=== PATIENT | male | born 1935 | race Caucasian/White ===

== ENCOUNTER 2019-01-01 13:18 | Emergency (ER) | payer MEDICARE, OTHER ==
[~2019-01-01] VITALS: Ht 177.8 cm; Wt 104.3 kg
[2019-01-01 14:09] LABS: Basophils # (auto) 0.1 uL; Eosinophils # (auto) 0.3 uL; Hematocrit 37.1 % (41.0-53.0); Lymphocytes # (auto) 1.9 uL; Monocytes # (auto) 0.5 uL
[2019-01-01 14:11] LABS: Basophils % (auto) 1.2 % (0.0-2.0); Eosinophils % (auto) 4.9 % (0.0-7.0); Hemoglobin 11.8 g/dL (13.5-17.5); Lymphocytes % (auto) 30.9 % (10.0-50.0); Mean Corpuscular Hemoglobin 24.3 pg (28.0-32.0); Mean Corpuscular Hgb Conc. 31.9 g/dL (32.0-36.0); Monocytes % (auto) 7.8 % (0.0-12.0); Neutrophils # (auto) 3.3 uL; Neutrophils % (auto) 55.2 % (37.0-80.0); Platelet Count (auto) 305 10^3/uL (140-450); Red Blood Cells 4.88 10^6/uL (4.5-5.90); Red Cell Distribution Width 18.6 % (11.8-14.3); White Blood Cell 6.1 10^3/uL (4.4-10.8)
[2019-01-01 14:38] LABS: Albumin 3.7 g/dL (3.4-5.0); Anion Gap 8 (5-15); Calcium 9.4 mg/dL (8.5-10.1); Carbon Dioxide 30 mmol/L (21-32); Chloride 103 mmol/L (98-107); Glucose 109 mg/dL (74-106); Potassium 3.8 mmol/L (3.5-5.1); Sodium 141 mmol/L (136-145)
[2019-01-01 14:43] LABS: Alanine Aminotransferase 22 U/L (16-61); Alkaline Phosphatase 99 U/L (45-117); Aspartate Aminotransferase 15 U/L (15-37); BUN/Creatinine Ratio 16.8; Bilirubin, Total 0.5 mg/dL (0.2-1.0); Blood Urea Nitrogen 16 mg/dL (7-18); GFR African American 97 mL/min; GFR Non-African American 80 mL/min; Total Protein 7.2 g/dL (6.4-8.2)
[2019-01-01 15:01] VITALS: BP 124/71
[2019-01-01] MEDS ORDERED: SODIUM CHLORIDE 0.9% 1,000 ML IV ONE (15:19)
[2019-01-01] MEDS ORDERED: SODIUM CHLORIDE 0.9% 500 ML IVB ONE (15:19)
[2019-01-01] MEDS ORDERED: FUROSEMIDE 20 MG/2 ML VIAL IV ONE (15:30)
[2019-01-01] MEDS ORDERED: LORazepam 2MG/ML-1ML VIAL IV ONE (15:30)
[2019-01-01] MEDS ORDERED: MECLIZINE HCL 25 MG TAB PO ONE (15:30)
== END 2019-01-01 17:03 | disposition home or self-care (01) ==
LOC: ER 13:18
DX: H81.12 Benign paroxysmal vertigo, left ear (principal); I10 Essential (primary) hypertension; D50.9 Iron deficiency anemia, unspecified
CPT/HCPCS: 36415; 70450; 71046; 80053; 81002; 83735; 84443; 84484; 85025; 93005; 96374; 99284; J1940; J8597

== ENCOUNTER 2019-03-25 23:51 | Emergency (ER) | payer OTHER ==
[~2019-03-25] VITALS: Ht 177.8 cm; Wt 108.9 kg
[2019-03-26 00:17] VITALS: BP 120/51
== END 2019-03-26 01:08 | disposition left against medical advice (07) ==
LOC: ER 23:53
DX: R21 Rash and other nonspecific skin eruption (principal); Z53.21 Procedure and treatment not carried out due to patient leaving prior to being seen by health care provider

== ENCOUNTER 2023-04-12 14:24 | Inpatient (IN) | payer OTHER ==
[~2023-04-12] VITALS: Ht 185.4 cm; Wt 109.2 kg
[2023-04-12] MEDS ORDERED: PIPERACILLIN-TAZOB 3.375GM 100 ML IV ONE (16:45)
[2023-04-12 17:05] LABS: Basophils # (auto) 0.1 10 ^3/uL (0-0.2); Basophils % (auto) 0.9 % (0.0-2.0); Eosinophils # (auto) 0.5 10 ^3/uL (0-0.8); Eosinophils % (auto) 6.1 % (0.0-7.0); Hematocrit 40.5 % (41.0-53.0); Hemoglobin 13.7 g/dL (13.5-17.5); Lymphocytes # (auto) 2.9 10 ^3/uL (0.4-5.4); Lymphocytes % (auto) 33.1 % (10.0-50.0); Mean Corpuscular Hemoglobin 29.5 pg (28.0-32.0); Mean Corpuscular Hgb Conc. 33.9 g/dL (32.0-36.0); Mean Corpuscular Volume 87.2 fL (80.0-100.0); Monocytes # (auto) 0.7 10 ^3/uL (0-1.3); Monocytes % (auto) 7.7 % (0.0-12.0); Neutrophils # (auto) 4.5 10 ^3/uL (1.6-8.6); Neutrophils % (auto) 52.2 % (37.0-80.0); Nucleated Red Blood Cells % 0.1 %; Red Blood Cells 4.64 10^6/uL (4.5-5.90); Red Cell Distribution Width 15.5 % (11.8-14.3); White Blood Cell 8.7 10^3/uL (4.4-10.8)
[2023-04-12 17:18] LABS: Alanine Aminotransferase 15 U/L (7-40); Albumin 4.2 g/dL (3.2-4.8); Alkaline Phosphatase 99 U/L (46-116); Anion Gap 7 (5-15); Aspartate Aminotransferase 10 U/L (13-40); BUN/Creatinine Ratio 14.3 (10.0-20.0); Blood Urea Nitrogen 14 mg/dL (9-23); Calcium 9.4 mg/dL (8.5-10.1); Carbon Dioxide 26 mmol/L (20-30); Chloride 105 mmol/L (98-107); Glucose 95 mg/dL (74-106); Potassium 3.5 mmol/L (3.5-5.1); Sodium 138 mmol/L (136-145)
[2023-04-12 17:19] LABS: Bilirubin, Total 0.5 mg/dL (0.2-1.0); Total Protein 7.2 g/dL (5.7-8.2)
[2023-04-12 17:44] LABS: Erythrocyte Sedimentation Rate 17 mm/hr (0-20)
[2023-04-12] MEDS ORDERED: HYDROcodone-ACET 5/325MG TAB PO ONE (19:45)
[2023-04-12] MEDS ORDERED: VANCOMYCIN 1GM/250ML 250 ML IV ONE (22:45)
[2023-04-12] MEDS ORDERED: VANCOMYCIN PER PHARMACY 0 MG IV SCH (23:45)
[2023-04-12] MEDS ORDERED: MORPHINE SULFATE INJ 2 MG/ml SYRG IV PRN (23:45)
[2023-04-12] MEDS ORDERED: ACETAMINOPHEN 325 MG TAB PO PRN (23:45)
[2023-04-12] MEDS ORDERED: DOCUSATE SOD 100 MG CAP PO PRN (23:45)
[2023-04-12] MEDS ORDERED: ONDANSETRON HCL 4 MG/2 ML VIAL IV PRN (23:45)
[2023-04-12] MEDS ORDERED: NITROGLYCERIN 0.4 MG SL TAB SL PRN (23:45)
[2023-04-13 00:48] VITALS: PULSE 59; RESP 9; O2SAT 93
[2023-04-13] MEDS: SODIUM CHLORIDE 0.9% 1,000 ML IV SCH ×2 (02:29→14:35)
[2023-04-13 06:35] LABS: Basophils # (auto) 0.1 10 ^3/uL (0-0.2); Basophils % (auto) 0.8 % (0.0-2.0); Eosinophils # (auto) 0.6 10 ^3/uL (0-0.8); Eosinophils % (auto) 7.4 % (0.0-7.0); Hemoglobin 13.3 g/dL (13.5-17.5); Lymphocytes # (auto) 2.3 10 ^3/uL (0.4-5.4); Lymphocytes % (auto) 29.3 % (10.0-50.0); Mean Corpuscular Hemoglobin 29.7 pg (28.0-32.0); Mean Corpuscular Volume 87.2 fL (80.0-100.0); Monocytes # (auto) 0.7 10 ^3/uL (0-1.3); Monocytes % (auto) 8.5 % (0.0-12.0); Neutrophils # (auto) 4.2 10 ^3/uL (1.6-8.6); Red Blood Cells 4.47 10^6/uL (4.5-5.90); Red Cell Distribution Width 15.8 % (11.8-14.3); White Blood Cell 7.8 10^3/uL (4.4-10.8)
[2023-04-13] MEDS: PIPERACILLIN-TAZOB 3.375GM 100 ML IV SCH ×3 (06:43→22:10)
[2023-04-13 06:44] LABS: Anion Gap 7 (5-15); Carbon Dioxide 27 mmol/L (20-30); Chloride 103 mmol/L (98-107); Potassium 3.3 mmol/L (3.5-5.1); Sodium 137 mmol/L (136-145)
[2023-04-13 06:50] LABS: BUN/Creatinine Ratio 10.9 (10.0-20.0); Blood Urea Nitrogen 11 mg/dL (9-23)
[2023-04-13 07:07] LABS: Glucose 115 mg/dL (74-106)
[2023-04-13] MEDS ORDERED: POTASSIUM CHL 20 Meq TABLET PO ONE (07:45)
[2023-04-13] MEDS ORDERED: LOSA100T33 PO (08:40)
[2023-04-13] MEDS ORDERED: AML5T PO (08:40)
[2023-04-13 09:48] LABS: Urine WBC None Seen /hpf (0 - 3)
[2023-04-13 09:58] VITALS: PULSE 82; RESP 20; O2SAT 96
[2023-04-13] MEDS ORDERED: PANTOPRAZOLE 40 MG/10 ML VIAL INJ IV SCH (10:00)
[2023-04-13] MEDS: ENOXAPARIN SOD 40 MG/0.4 ML SYRINGE SC SCH (10:00)
[2023-04-13 10:42] LABS: Urine Bacteria NONE SEEN /hpf (None Seen); Urine Blood Negative /uL (Negative); Urine Clarity Clear (Clear); Urine Color Colorless (Yellow); Urine Protein, UAD Negative (Negative); Urine Specific Gravity 1.018 (1.001-1.035); Urine Urobilinogen Normal (Negative); Urine pH 5.5 (5.0-8.0)
[2023-04-13] MEDS: HCTZ 25 MG TAB PO SCH (12:26)
[2023-04-13] MEDS: LOSARTAN POTASSIUM 50 MG TAB PO SCH (12:26)
[2023-04-13] MEDS: amLODIPine BESYLATE 5 MG TAB PO SCH (12:27)
[2023-04-13] MEDS: HYDROcodone-ACET 5/325MG TAB PO PRN ×2 (15:23→20:31)
[2023-04-13] MEDS: VANCOMYCIN 1GM/250ML 250 ML IV SCH (17:00)
[2023-04-13 19:00] VITALS: PULSE 70; RESP 14; O2SAT 97
[2023-04-14] MEDS: SODIUM CHLORIDE 0.9% 1,000 ML IV SCH ×2 (03:23→15:45)
[2023-04-14] MEDS: HYDROcodone-ACET 5/325MG TAB PO PRN ×2 (04:42→09:24)
[2023-04-14 05:00] VITALS: BP 149/56; PULSE 75; RESP 16; TEMP 98.7; O2SAT 93
[2023-04-14] MEDS: PIPERACILLIN-TAZOB 3.375GM 100 ML IV SCH ×3 (05:55→22:43)
[2023-04-14 07:01] LABS: Calcium 8.9 mg/dL (8.7-10.4); Chloride 101 mmol/L (98-107); Potassium 3.5 mmol/L (3.5-5.1); Sodium 135 mmol/L (136-145)
[2023-04-14 07:02] LABS: Anion Gap 6 (5-15); Carbon Dioxide 28 mmol/L (20-30)
[2023-04-14 07:05] LABS: Basophils # (auto) 0.1 10 ^3/uL (0-0.2); Basophils % (auto) 0.6 % (0.0-2.0); Eosinophils # (auto) 0.3 10 ^3/uL (0-0.8); Eosinophils % (auto) 2.9 % (0.0-7.0); Hematocrit 39.6 % (41.0-53.0); Hemoglobin 13.1 g/dL (13.5-17.5); Lymphocytes # (auto) 1.5 10 ^3/uL (0.4-5.4); Lymphocytes % (auto) 14.9 % (10.0-50.0); Mean Corpuscular Hemoglobin 29.1 pg (28.0-32.0); Mean Corpuscular Hgb Conc. 33.1 g/dL (32.0-36.0); Monocytes # (auto) 0.7 10 ^3/uL (0-1.3); Monocytes % (auto) 7.2 % (0.0-12.0); Neutrophils # (auto) 7.4 10 ^3/uL (1.6-8.6); Neutrophils % (auto) 74.4 % (37.0-80.0); Red Cell Distribution Width 15.6 % (11.8-14.3)
[2023-04-14 07:07] LABS: Blood Urea Nitrogen 13 mg/dL (9-23); Glucose 130 mg/dL (74-106)
[2023-04-14 08:00] VITALS: BP_SYST 154; BP_DIAS 74; BP_DIAS 77; PULSE 68; PULSE 71; RESP 20; TEMP 98.3; O2SAT 95
[2023-04-14] MEDS: HCTZ 25 MG TAB PO SCH (09:26)
[2023-04-14] MEDS: LOSARTAN POTASSIUM 50 MG TAB PO SCH (09:26)
[2023-04-14] MEDS: amLODIPine BESYLATE 5 MG TAB PO SCH (09:27)
[2023-04-14] MEDS: ENOXAPARIN SOD 40 MG/0.4 ML SYRINGE SC SCH (09:27)
[2023-04-14] MEDS: VANCOMYCIN 1GM/250ML 250 ML IV SCH (09:28)
[2023-04-14] MEDS ORDERED: PATIENTS OWN MEDICATION (Losartan Potassium & Hydrochlo (Losartan Potassium/Hydroc) 1 TAB) PO SCH (10:00)
[2023-04-14] MEDS ORDERED: amLODIPine BESYLATE 5 MG TAB PO SCH (10:00)
[2023-04-14 12:00] VITALS: BP 131/67; PULSE 69; RESP 18; TEMP 98.2; O2SAT 97
[2023-04-14 16:00] VITALS: BP 150/73; PULSE 75; RESP 20; TEMP 97.5; O2SAT 94
[2023-04-14 20:00] VITALS: BP 123/67; PULSE 67; PULSE 74; RESP 19; TEMP 97.8; O2SAT 93
[2023-04-14] MEDS ORDERED: DOCUSATE SOD 100 MG CAP PO ONE (21:15)
[2023-04-14 22:00] VITALS: BP 123/67; PULSE 67; RESP 19; TEMP 97.8; O2SAT 93
[2023-04-15] VITALS (7 sets, daily range): BP systolic 111–169; BP diastolic 53–74; PULSE 64–78; RESP 15–19; TEMP 97.9–99; O2SAT 92–95
[2023-04-15] MEDS: VANCOMYCIN 1GM/250ML 250 ML IV SCH ×2 (02:12→14:54)
[2023-04-15] MEDS: HYDROcodone-ACET 5/325MG TAB PO PRN ×2 (03:52→20:37)
[2023-04-15] MEDS: SODIUM CHLORIDE 0.9% 1,000 ML IV SCH ×2 (05:10→18:05)
[2023-04-15] MEDS ORDERED: PIPERACILLIN-TAZOB 3.375GM 100 ML IV SCH (06:00)
[2023-04-15 06:08] LABS: Basophils # (auto) 0.1 10 ^3/uL (0-0.2); Basophils % (auto) 0.6 % (0.0-2.0); Eosinophils # (auto) 0.3 10 ^3/uL (0-0.8); Eosinophils % (auto) 3.2 % (0.0-7.0); Hematocrit 37.2 % (41.0-53.0); Hemoglobin 12.8 g/dL (13.5-17.5); Lymphocytes # (auto) 2.1 10 ^3/uL (0.4-5.4); Lymphocytes % (auto) 23.3 % (10.0-50.0); Mean Corpuscular Hemoglobin 29.8 pg (28.0-32.0); Mean Corpuscular Hgb Conc. 34.3 g/dL (32.0-36.0); Monocytes # (auto) 0.8 10 ^3/uL (0-1.3); Monocytes % (auto) 9.1 % (0.0-12.0); Neutrophils # (auto) 5.7 10 ^3/uL (1.6-8.6); Neutrophils % (auto) 63.8 % (37.0-80.0); Red Blood Cells 4.28 10^6/uL (4.5-5.90); Red Cell Distribution Width 15.4 % (11.8-14.3); White Blood Cell 8.9 10^3/uL (4.4-10.8)
[2023-04-15 06:28] LABS: Anion Gap 7 (5-15); Carbon Dioxide 27 mmol/L (20-30); Chloride 102 mmol/L (98-107); Potassium 3.2 mmol/L (3.5-5.1); Sodium 136 mmol/L (136-145)
[2023-04-15 06:35] LABS: BUN/Creatinine Ratio 10.3 (10.0-20.0); Blood Urea Nitrogen 11 mg/dL (9-23); Glucose 116 mg/dL (74-106)
[2023-04-15] MEDS: HCTZ 25 MG TAB PO SCH (09:51)
[2023-04-15] MEDS: LOSARTAN POTASSIUM 50 MG TAB PO SCH (09:51)
[2023-04-15] MEDS: amLODIPine BESYLATE 5 MG TAB PO SCH (09:52)
[2023-04-15] MEDS: ENOXAPARIN SOD 40 MG/0.4 ML SYRINGE SC SCH (09:52)
[2023-04-15] MEDS ORDERED: VANCOMYCIN 1GM/250ML 250 ML IV SCH (14:30)
[2023-04-15] MEDS ORDERED: POTASSIUM CHL 20 Meq TABLET PO ONE (19:00)
[2023-04-15] MEDS: CYCLOBENZAPRINE HCL 10 MG TAB PO SCH (23:08)
[2023-04-16] VITALS (7 sets, daily range): BP systolic 122–169; BP diastolic 68–85; PULSE 64–84; RESP 15–18; TEMP 97.8–99.2; O2SAT 93–95
[2023-04-16] MEDS: VANCOMYCIN 1GM/250ML 250 ML IV SCH (04:58)
[2023-04-16] MEDS: HYDROcodone-ACET 5/325MG TAB PO PRN ×2 (05:41→14:04)
[2023-04-16 08:10] LABS: Basophils # (auto) 0.1 10 ^3/uL (0-0.2); Eosinophils # (auto) 0.3 10 ^3/uL (0-0.8); Eosinophils % (auto) 3.4 % (0.0-7.0); Hematocrit 38.3 % (41.0-53.0); Lymphocytes % (auto) 25.6 % (10.0-50.0); Mean Corpuscular Hemoglobin 29.5 pg (28.0-32.0); Mean Corpuscular Hgb Conc. 33.8 g/dL (32.0-36.0); Mean Corpuscular Volume 87.1 fL (80.0-100.0); Monocytes # (auto) 0.7 10 ^3/uL (0-1.3); Neutrophils # (auto) 4.9 10 ^3/uL (1.6-8.6); Nucleated Red Blood Cells % 0.1 %; Red Cell Distribution Width 15.5 % (11.8-14.3)
[2023-04-16 08:31] LABS: Anion Gap 6 (5-15); Calcium 9.1 mg/dL (8.5-10.1); Carbon Dioxide 28 mmol/L (20-30); Chloride 103 mmol/L (98-107); Sodium 137 mmol/L (136-145)
[2023-04-16 08:36] LABS: Glucose 123 mg/dL (74-106)
[2023-04-16 08:37] LABS: BUN/Creatinine Ratio 14.1 (10.0-20.0); Blood Urea Nitrogen 14 mg/dL (9-23)
[2023-04-16] MEDS ORDERED: cefTRIAXone 1GM/50ML D5W 50 ML IV SCH (09:00)
[2023-04-16 09:10] LABS: Magnesium 1.8 mg/dL (1.6-2.6)
[2023-04-16] MEDS: ENOXAPARIN SOD 40 MG/0.4 ML SYRINGE SC SCH (10:06)
[2023-04-16] MEDS: amLODIPine BESYLATE 5 MG TAB PO SCH (10:07)
[2023-04-16] MEDS: LOSARTAN POTASSIUM 50 MG TAB PO SCH (10:07)
[2023-04-16] MEDS: HCTZ 25 MG TAB PO SCH (10:08)
[2023-04-16] MEDS: CYCLOBENZAPRINE HCL 10 MG TAB PO SCH ×2 (10:08→21:49)
[2023-04-16] MEDS: SODIUM CHLORIDE 0.9% 1,000 ML IV SCH ×2 (10:09→21:05)
[2023-04-16] MEDS ORDERED: DAPTOmycin 500 MG in SODIUM CHL 0.9% 100 ML IV SCH ×2 (17:48→21:00)
[2023-04-17] MEDS: HYDROcodone-ACET 5/325MG TAB PO PRN (04:28)
[2023-04-17 05:00] VITALS: BP 145/67; PULSE 68; RESP 16; TEMP 97.8; O2SAT 98
[2023-04-17 07:37] LABS: Basophils # (auto) 0.1 10 ^3/uL (0-0.2); Basophils % (auto) 0.7 % (0.0-2.0); Eosinophils # (auto) 0.4 10 ^3/uL (0-0.8); Eosinophils % (auto) 4.7 % (0.0-7.0); Hematocrit 37.3 % (41.0-53.0); Hemoglobin 12.5 g/dL (13.5-17.5); Lymphocytes % (auto) 25.1 % (10.0-50.0); Mean Corpuscular Hemoglobin 29.4 pg (28.0-32.0); Mean Corpuscular Hgb Conc. 33.5 g/dL (32.0-36.0); Mean Corpuscular Volume 87.9 fL (80.0-100.0); Monocytes # (auto) 0.6 10 ^3/uL (0-1.3); Monocytes % (auto) 8.1 % (0.0-12.0); Neutrophils # (auto) 4.9 10 ^3/uL (1.6-8.6); Neutrophils % (auto) 61.4 % (37.0-80.0); Red Blood Cells 4.25 10^6/uL (4.5-5.90); Red Cell Distribution Width 15.9 % (11.8-14.3); White Blood Cell 7.9 10^3/uL (4.4-10.8)
[2023-04-17 08:00] VITALS: BP 157/86; PULSE 62; PULSE 65; RESP 14; TEMP 97.5; O2SAT 97
[2023-04-17 09:00] VITALS: BP 157/86; PULSE 65; RESP 14; TEMP 97.5; O2SAT 97
[2023-04-17 09:09] LABS: Partial Thromboplastin Time 30.2 SEC (24.5-34.5); Prothrombin Time 10.5 sec (9.3-11.8)
[2023-04-17] MEDS ORDERED: DAPTOMYCIN IV SCH (10:00)
[2023-04-17] MEDS: amLODIPine BESYLATE 5 MG TAB PO SCH (10:53)
[2023-04-17] MEDS: CYCLOBENZAPRINE HCL 10 MG TAB PO SCH (10:53)
[2023-04-17] MEDS: ENOXAPARIN SOD 40 MG/0.4 ML SYRINGE SC SCH (10:54)
[2023-04-17] MEDS: HCTZ 25 MG TAB PO SCH (10:54)
[2023-04-17] MEDS: LOSARTAN POTASSIUM 50 MG TAB PO SCH (10:55)
[2023-04-17] MEDS: SODIUM CHLORIDE 0.9% 1,000 ML IV SCH (11:00)
[2023-04-17 13:00] VITALS: BP 143/73; PULSE 62; RESP 16; TEMP 98.4; O2SAT 99
[2023-04-17] MEDS ORDERED: LIDOCAINE 1% (LOCAL ANESTH.) PF 5ml SDV ID ONE (13:00)
[2023-04-17] MEDS ORDERED: HYDR-4902 PO (15:45)
[2023-04-17] MEDS ORDERED: DOXY-448 PO (15:49)
[2023-04-17 17:00] VITALS: BP 142/69; PULSE 82; RESP 16; TEMP 98; O2SAT 95
[2023-04-17 18:24] VITALS: BP 142/69; PULSE 82; RESP 16; TEMP 98; O2SAT 95
[2023-04-17] MEDS ORDERED: SODIUM CHLOR 0.9% PF (SALINE LOCK) 10ML VIAL/SYR IV SCH (22:00)
== END 2023-04-17 19:20 | disposition home health service (06) | DRG 540 ==
LOC: ER 14:24 → TELE 23:56 → TELE-EAST 04-13 23:50
PROVIDERS: ADMIT Nurse Practitioner Family; ATTEND Internal Medicine
PROC: 02HV33Z Insertion of Infusion Device into Superior Vena Cava, Percutaneous Approach (ICD-10-PCS; principal; 2023-04-17)
PROC: B548ZZA Ultrasonography of Superior Vena Cava, Guidance (ICD-10-PCS; 2023-04-17)
DX: M86.161 Other acute osteomyelitis, right tibia and fibula (principal); L03.115 Cellulitis of right lower limb; S82.201A Unspecified fracture of shaft of right tibia, initial encounter for closed fracture; M86.661 Other chronic osteomyelitis, right tibia and fibula; I10 Essential (primary) hypertension; W18.39XA Other fall on same level, initial encounter; Z88.2 Allergy status to sulfonamides; Y93.89 Activity, other specified; Y92.89 Other specified places as the place of occurrence of the external cause; Y99.8 Other external cause status
CPT/HCPCS: 36415; 36569; 73200; 73590; 73610; 73701; 73718; 80048; 80053; 80202; 81001; 83605; 83735; 83880; 85025; 85610; 85652; 85730; 86141; 87040; 87077; 87186; 87205; 93971; 96365; 96367; 97110; 97116; 97163; 97530; 99291; C9113; G0378; J0696; J2543

== ENCOUNTER 2023-05-12 14:47 | Inpatient (IN) | payer OTHER ==
[~2023-05-12] VITALS: Ht 177.8 cm; Wt 109.6 kg
[2023-05-12] MEDS: CLINDAMYCIN 900MG IV 50 ML IV SCH (00:20)
[2023-05-12] MEDS: ACCU-CHEK COMFORT CURVE STRIP VI SCH (00:51)
[~2023-05-12 14:47] MED LIST: AML5T PO; DOXY-448 PO; HYDR-4902 PO; LOSA100T33 PO
[2023-05-12] MEDS ORDERED: PIPERACILLIN-TAZOB 3.375GM 100 ML IV ONE (15:30)
[2023-05-12 16:03] LABS: Basophils # (auto) 0.1 10 ^3/uL (0-0.2); Basophils % (auto) 1.8 % (0.0-2.0); Eosinophils # (auto) 0.4 10 ^3/uL (0-0.8); Eosinophils % (auto) 6.3 % (0.0-7.0); Hematocrit 38.1 % (41.0-53.0); Hemoglobin 12.7 g/dL (13.5-17.5); Lymphocytes # (auto) 2.2 10 ^3/uL (0.4-5.4); Lymphocytes % (auto) 33.2 % (10.0-50.0); Mean Corpuscular Hemoglobin 28.9 pg (28.0-32.0); Mean Corpuscular Hgb Conc. 33.4 g/dL (32.0-36.0); Mean Corpuscular Volume 86.5 fL (80.0-100.0); Monocytes # (auto) 0.4 10 ^3/uL (0-1.3); Monocytes % (auto) 6.1 % (0.0-12.0); Neutrophils # (auto) 3.5 10 ^3/uL (1.6-8.6); Neutrophils % (auto) 52.6 % (37.0-80.0); Nucleated Red Blood Cells % 0.1 %; Red Blood Cells 4.41 10^6/uL (4.5-5.90); Red Cell Distribution Width 15.8 % (11.8-14.3); White Blood Cell 6.7 10^3/uL (4.4-10.8)
[2023-05-12 16:21] LABS: Alanine Aminotransferase 23 U/L (7-40); Alkaline Phosphatase 96 U/L (46-116); Anion Gap 9 (5-15); Aspartate Aminotransferase 15 U/L (13-40); BUN/Creatinine Ratio 18.3 (10.0-20.0); Blood Urea Nitrogen 20 mg/dL (9-23); Calcium 9.3 mg/dL (8.5-10.1); Carbon Dioxide 25 mmol/L (20-30); Chloride 105 mmol/L (98-107); Glucose 218 mg/dL (74-106); Lactic Acid w/Reflex 2.7 mmol/L (0.4-2.0); Potassium 3.8 mmol/L (3.5-5.1); Sodium 139 mmol/L (136-145)
[2023-05-12 16:22] LABS: Bilirubin, Total 0.5 mg/dL (0.2-1.0); Total Protein 6.5 g/dL (5.7-8.2)
[2023-05-12 17:07] LABS: INR 1.02 (0.9-1.15); Partial Thromboplastin Time 27.7 SEC (24.5-34.5); Prothrombin Time 10.7 sec (9.3-11.8)
[2023-05-12] MEDS ORDERED: SODIUM CHLORIDE 0.9% 1,000 ML IV ONE (17:30)
[2023-05-12] MEDS ORDERED: MORPHINE SULFATE INJ 2 MG/ml SYRG IV PRN (17:30)
[2023-05-12] MEDS ORDERED: HYDROcodone-ACET 5/325MG TAB PO PRN (17:30)
[2023-05-12] MEDS ORDERED: ONDANSETRON HCL 4 MG/2 ML VIAL IV PRN (17:30)
[2023-05-12] MEDS ORDERED: NITROGLYCERIN 0.4 MG SL TAB SL PRN (17:30)
[2023-05-12] MEDS ORDERED: DEXTROSE (50%) 50ML SYRG IV PRN (17:30)
[2023-05-12 23:12] VITALS: PULSE 78; RESP 20; O2SAT 95
[2023-05-13 00:15] LABS: Urine Bacteria FEW /hpf (None Seen); Urine Blood Negative /uL (Negative); Urine Clarity Clear (Clear); Urine Color Yellow (Yellow); Urine Mucus FEW (None Seen); Urine Protein, UAD Negative (Negative); Urine Specific Gravity 1.025 (1.001-1.035); Urine Urobilinogen Normal (Negative); Urine WBC 7 /hpf (0 - 3); Urine pH 5.5 (5.0-8.0)
[2023-05-13] MEDS: SODIUM CHLORIDE 0.9% 1,000 ML IV SCH ×3 (02:04→23:04)
[2023-05-13] MEDS: InsuLIN REG 1unit/0.01ml Soln (100units/ml) SC SCH ×5 (02:05→23:03)
[2023-05-13 05:40] LABS: Basophils # (auto) 0.1 10 ^3/uL (0-0.2); Basophils % (auto) 1.2 % (0.0-2.0); Eosinophils # (auto) 0.5 10 ^3/uL (0-0.8); Eosinophils % (auto) 6.8 % (0.0-7.0); Hematocrit 35.4 % (41.0-53.0); Lymphocytes # (auto) 2.5 10 ^3/uL (0.4-5.4); Lymphocytes % (auto) 31.7 % (10.0-50.0); Mean Corpuscular Hemoglobin 29.5 pg (28.0-32.0); Monocytes # (auto) 0.7 10 ^3/uL (0-1.3); Monocytes % (auto) 9.2 % (0.0-12.0); Neutrophils # (auto) 4.1 10 ^3/uL (1.6-8.6); Neutrophils % (auto) 51.1 % (37.0-80.0); Nucleated Red Blood Cells % 0.3 %; Red Blood Cells 4.07 10^6/uL (4.5-5.90); Red Cell Distribution Width 15.8 % (11.8-14.3)
[2023-05-13 06:13] LABS: Anion Gap 10 (5-15); Calcium 8.8 mg/dL (8.7-10.4); Carbon Dioxide 22 mmol/L (20-30); Chloride 109 mmol/L (98-107); Potassium 3.5 mmol/L (3.5-5.1); Sodium 141 mmol/L (136-145)
[2023-05-13 06:19] LABS: BUN/Creatinine Ratio 13.4 (10.0-20.0); Blood Urea Nitrogen 15 mg/dL (9-23); Glucose 101 mg/dL (74-106)
[2023-05-13] MEDS: CLINDAMYCIN 900MG IV 50 ML IV SCH ×3 (07:12→23:03)
[2023-05-13] MEDS: ACCU-CHEK COMFORT CURVE STRIP VI SCH ×4 (07:36→23:02)
[2023-05-13 07:45] VITALS: PULSE 81; RESP 16; O2SAT 94
[2023-05-13] MEDS: ENOXAPARIN SOD 40 MG/0.4 ML SYRINGE SC SCH (11:07)
[2023-05-13] MEDS: FAMOTIDINE 20 MG TAB PO SCH (11:07)
[2023-05-13] MEDS ORDERED: LIDOCAINE 1% (LOCAL ANESTH.) PF 5ml SDV ID ONE (17:30)
[2023-05-13 20:22] VITALS: BP 150/61; PULSE 78; RESP 18; TEMP 97.8; O2SAT 98
[2023-05-13 22:00] VITALS: BP 150/61; PULSE 67; RESP 18; TEMP 97.8; O2SAT 96
[2023-05-13] MEDS: SODIUM CHLOR 0.9% PF (SALINE LOCK) 10ML VIAL/SYR IV SCH (23:02)
[2023-05-14 05:00] VITALS: BP 144/64; PULSE 73; RESP 18; TEMP 97.8; O2SAT 98
[2023-05-14] MEDS: ACCU-CHEK COMFORT CURVE STRIP VI SCH ×3 (06:37→17:00)
[2023-05-14] MEDS: InsuLIN REG 1unit/0.01ml Soln (100units/ml) SC SCH ×3 (06:37→17:00)
[2023-05-14] MEDS: CLINDAMYCIN 900MG IV 50 ML IV SCH (06:38)
[2023-05-14 07:13] LABS: Basophils # (auto) 0.1 10 ^3/uL (0-0.2); Basophils % (auto) 0.9 % (0.0-2.0); Eosinophils # (auto) 0.6 10 ^3/uL (0-0.8); Hematocrit 36.5 % (41.0-53.0); Hemoglobin 12.4 g/dL (13.5-17.5); Lymphocytes # (auto) 2.1 10 ^3/uL (0.4-5.4); Lymphocytes % (auto) 33.3 % (10.0-50.0); Mean Corpuscular Hemoglobin 29.7 pg (28.0-32.0); Mean Corpuscular Hgb Conc. 33.9 g/dL (32.0-36.0); Mean Corpuscular Volume 87.7 fL (80.0-100.0); Monocytes # (auto) 0.5 10 ^3/uL (0-1.3); Monocytes % (auto) 8.5 % (0.0-12.0); Neutrophils # (auto) 3.1 10 ^3/uL (1.6-8.6); Neutrophils % (auto) 48.3 % (37.0-80.0); Nucleated Red Blood Cells % 0.2 %; Red Blood Cells 4.16 10^6/uL (4.5-5.90); Red Cell Distribution Width 16.1 % (11.8-14.3); White Blood Cell 6.4 10^3/uL (4.4-10.8)
[2023-05-14 07:30] LABS: INR 1.06 (0.9-1.15); Prothrombin Time 11.1 sec (9.3-11.8)
[2023-05-14 07:43] LABS: Anion Gap 8 (5-15); Carbon Dioxide 26 mmol/L (20-30); Chloride 106 mmol/L (98-107); Potassium 3.8 mmol/L (3.5-5.1); Sodium 140 mmol/L (136-145)
[2023-05-14 07:49] LABS: BUN/Creatinine Ratio 12.1 (10.0-20.0); Blood Urea Nitrogen 12 mg/dL (9-23); Glucose 101 mg/dL (74-106)
[2023-05-14 08:00] VITALS: PULSE 62; PULSE 69; RESP 20; O2SAT 96
[2023-05-14 08:30] VITALS: BP 138/80; PULSE 69; RESP 20; TEMP 98.6; O2SAT 96
[2023-05-14] MEDS: ENOXAPARIN SOD 40 MG/0.4 ML SYRINGE SC SCH (10:35)
[2023-05-14] MEDS: FAMOTIDINE 20 MG TAB PO SCH (10:35)
[2023-05-14] MEDS: SODIUM CHLOR 0.9% PF (SALINE LOCK) 10ML VIAL/SYR IV SCH (10:36)
[2023-05-14] MEDS: diphenhdrAMINE HCL 25 MG CAP PO PRN ×2 (12:19→20:01)
[2023-05-14] MEDS ORDERED: VANCOMYCIN PER PHARMACY 0 MG IV SCH (14:00)
[2023-05-14] MEDS ORDERED: VANCOMYCIN 1GM/250ML 250 ML IV ONE (14:30)
[2023-05-14 16:30] VITALS: BP 149/85; PULSE 65; RESP 18; TEMP 98.1; O2SAT 97
[2023-05-14 18:32] VITALS: BP 136/79; PULSE 65; RESP 18; TEMP 98.1; O2SAT 97
[2023-05-15] MEDS ORDERED: VANCOMYCIN 1GM/250ML 250 ML IV SCH (06:00)
== END 2023-05-14 20:45 | disposition home or self-care (01) | DRG 315 ==
LOC: ER 14:47 → TELE 17:27 → TELE-CENTR 05-13 20:00
PROVIDERS: ADMIT Hospitalist; ATTEND Hospitalist
PROC: 02HV33Z Insertion of Infusion Device into Superior Vena Cava, Percutaneous Approach (ICD-10-PCS; principal; 2023-05-13)
PROC: B548ZZA Ultrasonography of Superior Vena Cava, Guidance (ICD-10-PCS; 2023-05-13)
DX: T82.514A Breakdown (mechanical) of infusion catheter, initial encounter (principal); E87.20 Acidosis, unspecified; L03.115 Cellulitis of right lower limb; M86.60 Other chronic osteomyelitis, unspecified site; M86.661 Other chronic osteomyelitis, right tibia and fibula; Y71.2 Prosthetic and other implants, materials and accessory cardiovascular devices associated with adverse incidents; E11.69 Type 2 diabetes mellitus with other specified complication; B95.62 Methicillin resistant Staphylococcus aureus infection as the cause of diseases classified elsewhere; I10 Essential (primary) hypertension; Z88.2 Allergy status to sulfonamides; Z82.49 Family history of ischemic heart disease and other diseases of the circulatory system; Y92.89 Other specified places as the place of occurrence of the external cause
CPT/HCPCS: 36415; 36569; 71045; 72131; 72192; 73700; 80048; 80053; 81001; 82962; 83605; 84484; 85025; 85610; 85730; 87040; 87081; 87205; 96361; 96365; 96367; 96372; G0378; J1815; J2543; J3490

== ENCOUNTER 2023-07-25 14:16 | Emergency (ER) | payer OTHER ==
[~2023-07-25] VITALS: Ht 180.3 cm; Wt 109.0 kg
[2023-07-25 17:43] VITALS: BP 150/61; PULSE 75; RESP 18; TEMP 98.1; O2SAT 98
== END 2023-07-25 17:46 | disposition home or self-care (01) ==
LOC: ER 14:16
DX: Z45.2 Encounter for adjustment and management of vascular access device (principal); I10 Essential (primary) hypertension; Z79.2 Long term (current) use of antibiotics; Z79.899 Other long term (current) drug therapy; Z88.2 Allergy status to sulfonamides

== ENCOUNTER 2024-05-30 15:12 | Emergency (ER) | payer OTHER ==
[~2024-05-30] VITALS: Ht 180.3 cm; Wt 100.9 kg
[~2024-05-30 15:12] MED LIST changes: -DOXY-448 PO; +DOXY100C79 PO
--- NOTE | 2024-05-30 15:38 | ECG ---
[facility] Test Date: 2024-05-30 Test Time: 15:37:05 Pat Name: MIGUEL BALDERAS Department: ER Room: Gender: M Production Department Supervisor: AGNES : [id number] Requested By: QUINTON BENAVIDEZ Order Number: [id number] Reading MD: Arun Suárez Measurements Intervals [place] Rate: 71 P: 10 KS: 172 QRS: -7 QRSD: 100 T: 57 QT: 412 QTc: 448 Interpretive Statements Sinus rhythm Multiform ventricular premature complexes Low voltage, precordial leads Minimal ST depression, lateral leads Electronically Signed On 06-04-2024 16:08:31 PST by Arun Suárez Please click the below link to view image of tracing.
[2024-05-30 16:17] LABS: Basophils # (auto) 0 10 ^3/uL (0-0.2); Basophils % (auto) 0.5 % (0.0-2.0); Eosinophils # (auto) 0.3 10 ^3/uL (0-0.8); Eosinophils % (auto) 3.3 % (0.0-7.0); Hematocrit 40.8 % (41.0-53.0); Hemoglobin 14.1 g/dL (13.5-17.5); Lymphocytes # (auto) 2.5 10 ^3/uL (0.4-5.4); Lymphocytes % (auto) 30.8 % (10.0-50.0); Mean Corpuscular Hemoglobin 32.6 pg (28.0-32.0); Mean Corpuscular Hgb Conc. 34.6 g/dL (32.0-36.0); Mean Corpuscular Volume 94.2 fL (80.0-100.0); Monocytes # (auto) 0.7 10 ^3/uL (0-1.3); Monocytes % (auto) 8.1 % (0.0-12.0); Neutrophils # (auto) 4.7 10 ^3/uL (1.6-8.6); Neutrophils % (auto) 57.3 % (37.0-80.0); Nucleated Red Blood Cells % 0.1 %; Platelet Count (auto) 327 10^3/uL (140-450); Red Blood Cells 4.33 10^6/uL (4.5-5.90); Red Cell Distribution Width 13.9 % (11.8-14.3); White Blood Cell 8.3 10^3/uL (4.4-10.8)
[2024-05-30 16:35] LABS: Alanine Aminotransferase 23 U/L (7-40); Albumin 4.1 g/dL (3.2-4.8); Alkaline Phosphatase 84 U/L (46-116); Anion Gap 8 (5-15); BUN/Creatinine Ratio 14.3 (10.0-20.0); Blood Urea Nitrogen 20 mg/dL (9-23); Calcium 9.7 mg/dL (8.7-10.4); Carbon Dioxide 30 mmol/L (20-31); Chloride 101 mmol/L (98-107); Sodium 139 mmol/L (136-145)
[2024-05-30 16:36] LABS: Bilirubin, Total 0.3 mg/dL (0.2-1.0); Total Protein 6.5 g/dL (5.7-8.2)
[2024-05-30 16:40] LABS: Glucose 110 mg/dL (74-106)
[2024-05-30 16:41] LABS: Aspartate Aminotransferase 11 U/L (13-40)
--- NOTE | 2024-05-30 16:44 | DVH ---
CT HEAD WITHOUT CONTRAST INDICATION: Altered mental status EXAM DATE: 05/30/2024 03:59 PM COMPARISON: CT PELVIS WO CONTRAST on DOS: 05/12/23, CT LS SPINE WO CONTRAST on DOS: 05/12/23, CT CT L SHOULDER WO CONTRAST on DOS: 04/14/23 RADIATION DOSE: CTDIvol: 51.05 mGy, DLP: 863.9 mGy*cm PROCEDURE: CT scans of the head were obtained from the vertex to the skull base. Sagittal and coronal reconstructions were provided. All CT scans at this medical facility are performed using dose modulation techniques as appropriate t o a performed exam including the following: Automated exposure control was utilized; adjustment of th e MA and/or KV according to patient size; and use of iterative reconstruction technique. FINDINGS: There is sulcal and ventricular prominence. The brain otherwise shows normal morphology a nd dunham-white matter differentiation, without intracranial hemorrhage, extra-axial fluid collection, mass effect or acute large vessel infarct.The basal cisterns are patent. The skull and visible facial bones are intact. The paranasal sinuses, mastoid air cells and middle ear cavities are well-aerated. The soft tissues of the scalp are unremarkable. IMPRESSION: No acute intracranial abnormality.
[2024-05-30 16:51] LABS: Lipase 20 U/L (12-53)
[2024-05-30 17:02] LABS: Urine Bacteria None Seen /hpf (None Seen)
[2024-05-30 17:09] LABS: Urine Blood Negative /uL (Negative); Urine Clarity Clear (Clear); Urine Color Yellow (Yellow); Urine Protein, UAD Negative (Negative); Urine Specific Gravity 1.021 (1.001-1.035); Urine Urobilinogen Normal (Negative); Urine WBC <1 /hpf (0 - 3); Urine pH 5.5 (5.0-9.0)
--- NOTE | 2024-05-30 19:25 | ED.PDOC ---
HPI (NEURO) HPI Comments Patient is a very pleasant 88-year-old male who arrives to the ED today for evaluation of intermittent dizziness and forgetfulness for the past month. 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 Patient states he has seen his primary care provider and all testing has been normal. Patient denies any recent trauma or medication use. Patient denies any history of intracranial concerns. Patient was mildly hypertensive and tachycardic at arrival. Patient states he was told he has intermittent hypertension, but does not take medication. Chief Complaint: General Weakness Time Seen by MD: 15:26 Primary Care Provider: Jonah Shearer Notes: Nurses Notes Information Source: Patient Mode of Arrival: Ambulatory Severity: Mild Dizziness/Weakness Severity: Does not affect activitie Headache Severity: None Timing: Months Duration: Intermittent Prehospital treatment: None Onset: At rest Symptoms: Vertigo History of: None Modifying factors: Nothing Past Medical History PAST MEDICAL HISTORY: HTN, MRSA Surgical History: Denies all surgeries Family History Family History: Reviewed,noncontributory to illness Social History Smoker: Non-Smoker Alcohol: Occasionally Drugs: Denies Drug Use Lives In: Home Constitutional: denies: chills, diaphoresis, fatigue, fever, malaise, sweats, weakness, others EENTM: denies: blurred vision, double vision, ear bleeding, ear discharge, ear drainage, ear pain, ear ringing, eye pain, eye redness, hearing loss, mouth pain, mouth swelling, nasal discharge, nose bleeding, nose congestion, nose pain, photophobia, tearing, throat pain, throat swelling, voice changes, others Respiratory: denies: cough, hemoptysis, orthopnea, SOB at rest, shortness of breath, SOB with excertion, stridor, wheezing, others Cardiovascular: denies: chest pain, dizzy spells, diaphoresis, Dyspnea on exertion, edema, irregular heart beat, left arm pain, lightheadedness, palpitations, PND, syncope, others Gastrointestinal: denies: abdomen distended, abdominal pain, blood streaked bowels, constipated, diarrhea, dysphagia, difficulty swallowing, hematemesis, melena, nausea, poor appetite, poor fluid intake, rectal bleeding, rectal pain, vomiting, others Genitourinary: denies: burning, dysuria, flank pain, frequency, hematuria, inco ntinence, penile discharge, penile sore, pain, testicle pain, testicle swelling, urgency, others Neurological: reports: dizziness, others (Memory concerns); denies: fainting, headache, left sided numbness, left sided weakness, numbness, paresthesia, pre- existing deficit, right sided numbness, right sided weakness, seizure, speech problems, tingling, tremors, weakness Musculoskeletal: denies: back pain, gout, joint pain, joint swelling, muscle pain, muscle stiffness, neck pain, others Integumetry: denies: bruises, change in color, change in hair/nails, dryness, laceration, lesions, lumps, rash, wounds, others Allergic/Immunocompromised: denies: Difficulty Healing, Frequent Infections, Hives, Itching, others Hematologic/Lymphatic: denies: anemia, blood clots, easy bleeding, easy bruising, swollen glands, others Endocrine: denies: excessive hunger, excessive sweating, excessive thirst, excessive urination, flushing, intolerance to cold, intolerance to heat, unexplained weight gain, unexplained weight loss, others Psychiatric: denies: anxiety, bipolar disorder, depression, hopeless, panic disorder, schizophrenia, sleepless, suicidal, others Physical Exam General Appearance: No Apparent Distress (Patient was in no distress at time of evaluation. Patient was asymptomatic and did not display any signs of altered mental status.), Normal HEENT: Normal ENT Inspection, Pharynx Normal, TMs Normal Neck: Full Range of Motion, Non-Tender, Normal, Normal Inspection Respiratory: Chest Non-Tender, Lungs Clear, No Accessory Muscle Use, No Respiratory Distress, Normal Breath Sounds Cardiovascular: No Edema, No JVD, No Murmur, No Gallop, Normal Peripheral Pulses, Regular Rate/Rhythm Breast Exam: Deferred Gastrointestinal: No Organomegaly, Non Tender, No Pulsatile Mass, Normal Bowel Sounds, Soft Genitalia: Deferred Pelvic: Deferred Rectal: Deferred Extremities: No calf tenderness, Normal capillary refill, Normal inspection, Normal range of motion, Non-tender, No pedal edema Neurologic: Alert, felt tipping machine tender II-XII nml as Tested, No Motor Deficits, Normal Affect, Normal Mood, No Sensory Deficits Cerebellar Function: Normal Reflexes: Normal Skin: Dry, Normal Color, Warm Lymphatic: No Adenopathy Was a procedure done? Was a procedure done?: No Differential Diagnosis (SZ) Seizure: Other (Memory events, dizziness) X-Ray, Labs, Meds, VS Vital Signs Date Time Temp Pulse Resp B/P (MAP) Pulse Ox O2 Delivery O2 Flow Rate FiO2 05/30/24 15:37 71 05/30/24 15:34 97.8 113 16 156/91 (112) 98 Lab Test 05/30/24 16:59 05/30/24 16:00 Range/Units Urine Color Yellow Yellow Urine Clarity Clear Clear Urine pH 5.5 5.0-9.0 Urine Specific [place] 1.021 1.001-1.035 Urine Protein Negative Negative Urine Ketones Negative Negative Urine Blood Negative Negative /uL Urine Nitrite Negative Negative Urine Bilirubin Negative Negative Urine Urobilinogen Normal Negative mg/dL Urine Leukocyte Esterase Negative Negative /uL Urine RBC 1 0 - 3 /hpf Urine WBC <1 0 - 3 /hpf Urine Squamous Epithelial Cells Few <5 /hpf Urine Bacteria None seen None Seen /hpf Urine Glucose Normal Normal mg/dL White Blood Count 8.3 4.4-10.8 10^3/uL Red Blood Count 4.33 L 4.5-5.90 10^6/uL Hemoglobin 14.1 13.5-17.5 g/dL Hematocrit 40.8 L 41.0-53.0 % Mean Corpuscular Volume 94.2 80.0-100.0 fL Mean Corpuscular Hemoglobin 32.6 H 28.0-32.0 pg Mean Corpuscular Hemoglobin Concent 34.6 32.0-36.0 g/dL Red Cell Distribution Width 13.9 11.8-14.3 % Platelet Count 327 140-450 10^3/uL Mean Platelet Volume 8.1 6.9-10.8 fL Neutrophils (%) (Auto) 57.3 37.0-80.0 % Lymphocytes (%) (Auto) 30.8 10.0-50.0 % Monocytes (%) (Auto) 8.1 0.0-12.0 % Eosinophils (%) (Auto) 3.3 0.0-7.0 % Basophils (%) (Auto) 0.5 0.0-2.0 % Neutrophils # (Auto) 4.7 1.6-8.6 10 ^3/uL Lymphocytes # (Auto) 2.5 0.4-5.4 10 ^3/uL Monocytes # (Auto) 0.7 0-1.3 10 ^3/uL Eosinophils # (Auto) 0.3 0-0.8 10 ^3/uL Basophils # (Auto) 0 0-0.2 10 ^3/uL Nucleated Red Blood Cells 0.1 % Sodium Level 139 136-145 mmol/L Potassium Level 4.0 3.5-5.1 mmol/L Chloride Level 101 98-107 mmol/L Carbon Dioxide Level 30 20-31 mmol/L Anion Gap 8 5-15 Blood Urea Nitrogen 20 9-23 mg/dL Creatinine 1.40 H 0.700-1.30 mg/dL Glomerular Filtration Rate Calc 48 >90 mL/min BUN/Creatinine Ratio 14.3 10.0-20.0 Serum Glucose 110 H 74-106 mg/dL Calcium Level 9.7 8.7-10.4 mg/dL Total Bilirubin 0.3 0.2-1.0 mg/dL Aspartate Amino Transferase (AST) 11 L 13-40 U/L Alanine Aminotransferase (ALT) 23 7-40 U/L Alkaline Phosphatase 84 46-116 U/L Troponin I High Sensitivity 9 </=54 ng/L B-Type Natriuretic Peptide 41.32 0-100 pg/mL Total Protein 6.5 5.7-8.2 g/dL Albumin 4.1 3.2-4.8 g/dL Lipase 20 12-53 U/L X-Ray, Labs, Meds, VS Comment All studies performed in the ED were today were evaluated by me personally. Laboratories were unremarkable for any systemic process. CT of head was unremarkable for any intracranial concerns or masses. EKG revealed a sinus rhythm with a rate of 71. Multiform ventricular premature complexes noted with a ND interval of 172 and a QT interval of 412. Spent time discussing results with the patient. Advised follow up with the primary care provider for possible neurologic referral and evaluation. Time of 1ST Reevaluation: 19:23 Reevaluation 1ST: Unchanged Consultation: PCP, Neurology Patient Education/Counseling: Diagnosis, Treatment Family Education/Counseling: Diagnosis, Treatment Departure 1 Departure Time of Disposition: 19:24 Impression: Primary Impression: Memory change Additional Impression: Dizziness Disposition: 01 HOME / SELF CARE / HOMELESS Condition: Stable Additional Instructions: Advised patient follow up with his primary care provider for possible neurologic referral and evaluation. Discharged With: Self, Friend Critical Care Note Critical Care Time?: No Stability Stability form required: No Heart Score Heart Score: Heart Score Response (Comments) Value History Slightly Suspicious 0 EKG Repolarization Disturb 1 Age >65 2 Risk Factors 1 or 2 risk factors 1 Troponin 1-2 x's Normal limit 1 Total 5 QUINTON BENAVIDEZ PAC May 30, 2024 19:25
[2024-05-30 20:06] VITALS: BP 123/64; PULSE 68; RESP 12; TEMP 98.7; O2SAT 96
== END 2024-05-30 20:14 | disposition home or self-care (01) ==
LOC: ER 15:12
DX: R42 Dizziness and giddiness (principal); R41.3 Other amnesia; I10 Essential (primary) hypertension
CPT/HCPCS: 36415; 70450; 80053; 81001; 83690; 83880; 84484; 85025; 93005